=== PATIENT | male | born 1995 | race Caucasian/White ===

== ENCOUNTER 2018-08-06 18:02 | Emergency (ER) | payer MEDICARE, MEDICAID ==
[~2018-08-06] VITALS: Ht 175.3 cm; Wt 65.0 kg
[~2018-08-06 18:02] MED LIST: QUET25TA PO; ZOLP5TAB8 PO
[2018-08-06] MEDS ORDERED: TETanus/Pertussis (Acell)/Diphther VAC/PF (Tdap-Adult) 0.5ml syringe IM ONE (18:10)
[2018-08-06 18:57] VITALS: BP 121/85
== END 2018-08-06 18:59 | disposition home or self-care (01) ==
LOC: ER 18:02
DX: S80.02XA Contusion of left knee, initial encounter (principal); S00.81XA Abrasion of other part of head, initial encounter; S90.512A Abrasion, left ankle, initial encounter; F12.90 Cannabis use, unspecified, uncomplicated; Z59.0 Homelessness; Z56.0 Unemployment, unspecified; Z88.8 Allergy status to other drugs, medicaments and biological substances; W22.8XXA Striking against or struck by other objects, initial encounter; Y93.01 Activity, walking, marching and hiking; Y92.89 Other specified places as the place of occurrence of the external cause; Y99.9 Unspecified external cause status
CPT/HCPCS: 73564; 90471; 90715; 99283

== ENCOUNTER 2018-08-08 20:35 | Emergency (ER) | payer MEDICARE, MEDICAID ==
[~2018-08-08] VITALS: Ht 180.3 cm; Wt 75.0 kg
[2018-08-08] MEDS ORDERED: NO HOME MEDS (21:11)
--- NOTE | 2018-08-08 21:25 | NUR ---
TELE PSYCH CONSULT INITIATED.
--- NOTE | 2018-08-08 21:41 | NUR ---
PT UP TO BR TO PROVIDE URINE SAMPLE, DIPPED CUP INTO TOILET URINE WAS VERY CLEAR AND COLD TO THE TOUCH. ASKED FOR ANOTHER SAMPLE AND PT STATED HE CANNOT URINATE AT THIS TIME. ASKING TO SPEAK TO "SOMEONE IN CHARGE". TOLD PT THAT I WAS HIS NURSE AND IN CHARGE OF TAKING CARE OF HIM. ALSO TOLD IF UNABLE TO PROVIDE URINE THAT HE WOULD BE CATHETERIZED.
[2018-08-08 22:25] LABS: BASOPHILS % (AUTO) 0.1 % (0-1); EOSINOPHILS % (AUTO) 0 % (0-6); HEMATOCRIT 36.4 % (42.0-52.0); HEMOGLOBIN 12.1 g/dl (14.0-17.9); LYMPHOCYTES # (AUTO) 0.9 X10'3 (1.1-4.8); LYMPHOCYTES % (AUTO) 7.9 % (21-51); MEAN CORPUSCULAR HEMOGLOBIN 29.4 PG (27.0-31.0); MEAN CORPUSCULAR HGB CONC 33.3 g/dL (33.0-36.5); MEAN CORPUSCULAR VOLUME 88.4 FL (78-98); MEAN PLATELET VOLUME 8.2 FL (7.4-10.4); MONOCYTES # (AUTO) 0.7 X10'3 (0-0.9); NEUTROPHILS # (AUTO) 10.1 X10'3 (1.8-7.7); PLATELET COUNT 217 X10'3 (140-440); RED BLOOD COUNT 4.12 X10'6 (4.70-6.10); RED CELL DISTRIBUTION WIDTH 12.9 % (11.5-14.5); WHITE BLOOD COUNT 11.7 X10'3 (4.5-11.0)
[2018-08-08 22:30] LABS: ALANINE AMINOTRANSFERASE 27 U/L (12-78); ALBUMIN 3.8 G/DL (3.4-5.0); ALBUMIN/GLOBULIN RATIO 1.2 (1.1-1.5); ALKALINE PHOSPHATASE 57 IU/L (46-116); ANION GAP 8 (8-16); ASPARTATE AMINO TRANSFERASE 47 U/L (10-37); BILIRUBIN,TOTAL 0.5 MG/DL (0.1-1.0); BLOOD UREA NITROGEN 23 MG/DL (7-18); BUN/CREATININE RATIO 30.7 (5.4-32.0); CALCIUM 8.9 MG/DL (8.5-10.1); CHLORIDE 102 MMOL/L (99-107); CREATININE 0.75 MG/DL (0.60-1.10); GLUCOSE 97 MG/DL (70-104); POTASSIUM 4.3 MMOL/L (3.5-5.1); SODIUM 137 MMOL/L (135-145); TOTAL CARBON DIOXIDE 27.4 MMOL/L (24-32); TOTAL PROTEIN 6.9 G/DL (6.4-8.2); eGFR > 90 ML/MIN
[2018-08-08 22:39] LABS: ETHANOL < 0.010 GM/DL (0.0-0.010)
--- NOTE | 2018-08-08 22:50 | NUR ---
PT SPEAKING IN A HIGH VOICE, MUMBLING ABOUT NONSENSE. ENC TO KEEP NOISE DOWN OTHER PATTIENTS ARE SLEEPING.
[2018-08-08] MEDS ORDERED: LORazepam 2 mg/ml vial IM ONE (22:55)
--- NOTE | 2018-08-08 23:00 | NUR ---
DR BAUTISTA ASKED FOR MEDS FOR PT TO HELP HIM SETTLE DOWN, SOMEWHAT AGGITATED AND DISRUPTIVE TO UNIT. ATIVAN 2MG IM GIVEN.
--- NOTE | 2018-08-08 23:06 | NUR ---
TELE PSYCH CONSULT CANCELLED SINCE PT WAS MEDICATED, WILL RE INITIATE IN AM.
--- NOTE | 2018-08-09 00:59 | NUR ---
PT NOW SLEEPING AFTER BEING MEDICATED.
[2018-08-09 06:00] VITALS: BP 115/62
--- NOTE | 2018-08-09 06:30 | NUR ---
pt sleeping on left side no distress noted.
--- NOTE | 2018-08-09 07:15 | NUR ---
PT awake, stated not homicidal or suicidal. wants to leave. stated will comply and give UA. UA sent down to pharmacy. awaiting results.
--- NOTE | 2018-08-09 08:11 | NUR ---
called CB to initiate psyc consult. pt stated not homicidal or suicidal.
[2018-08-09 08:15] LABS: CLARITY,URINE CLEAR (Clear); COLOR,URINE YELLOW (Yellow); GLUCOSE, URINE NEGATIVE (Neg); KETONES,URINE >=80 mg/dl (Neg); LEUKOCYTE ESTERASE ,URINE NEGATIVE (Neg); NITRITES, URINE NEGATIVE (Neg); OCCULT BLOOD,URINE NEGATIVE (Neg); PROTEIN,URINE TRACE mg/dl (Neg)
[2018-08-09 08:20] LABS: UA COLLECTION TYPE CLN CATCH MIDSTREAM
[2018-08-09 08:21] LABS: BACTERIA,URINE NONE SEEN /HPF (Neg); MUCUS STRANDS FEW /LPF (Neg); RBC,URINE NONE SEEN /HPF (0-2); SQUAMOUS EPITHELIAL CELL,UR FEW /LPF (FEW); WBC,URINE NONE SEEN /HPF (0-4)
[2018-08-09 08:22] LABS: URINE AMPHETAMINE SCREEN NEGATIVE (Neg); URINE BARBITUATE SCREEN NEGATIVE (Neg); URINE BENZODIAZEPINES SCREEN NEGATIVE (Neg); URINE CANNABINOID SCREEN POSITIVE (Neg); URINE COCAINE SCREEN NEGATIVE (Neg); URINE METHADONE SCREEN NEGATIVE (Neg); URINE OPIATE SCREEN NEGATIVE (Neg); URINE PHENCYCLIDINE SCREEN NEGATIVE (Neg)
--- NOTE | 2018-08-09 08:47 | NUR ---
mother called stated has effective poa over pt and is legal gardian. stated will let pt know she called.
--- NOTE | 2018-08-09 10:14 | NUR ---
pt walking in front of nursing station. no distress noted. stated he wants to leave.
--- NOTE | 2018-08-09 12:00 | NUR ---
pt sleeping on left side no distress noted.
--- NOTE | 2018-08-09 13:10 | NUR ---
pt called mother to fruit or nut picker for ride.
--- NOTE | 2018-08-09 13:23 | NUR ---
I spoke to pt mother. stated having work done on car right now. will pick pt up in 1.5-2 hours.
== END 2018-08-09 15:40 | disposition home or self-care (01) ==
LOC: ER 20:35
DX: F20.9 Schizophrenia, unspecified (principal); F12.90 Cannabis use, unspecified, uncomplicated; Z56.0 Unemployment, unspecified; Z59.0 Homelessness; Z88.8 Allergy status to other drugs, medicaments and biological substances; S00.81XA Abrasion of other part of head, initial encounter; X58.XXXA Exposure to other specified factors, initial encounter; Y93.89 Activity, other specified; Y92.89 Other specified places as the place of occurrence of the external cause; Y99.8 Other external cause status
CPT/HCPCS: 36415; 80053; 80305; 80320; 81001; 84443; 85025; 96372; 99285; J2060

== ENCOUNTER 2018-08-11 17:42 | Emergency (ER) | payer MEDICARE, MEDICAID ==
[~2018-08-11] VITALS: Ht 180.3 cm; Wt 68.2 kg
[~2018-08-11 17:42] MED LIST changes: +NO HOME MEDS
--- NOTE | 2018-08-11 18:11 | NUR ---
TELEPYCH CONSULT INITIATED.
[2018-08-11 18:13] LABS: BASOPHILS % (AUTO) 0.3 % (0-1); EOSINOPHILS # (AUTO) 0.1 X10'3 (0-0.9); EOSINOPHILS % (AUTO) 0.7 % (0-6); LYMPHOCYTES # (AUTO) 0.9 X10'3 (1.1-4.8); LYMPHOCYTES % (AUTO) 12.7 % (21-51); MEAN CORPUSCULAR HEMOGLOBIN 29.4 PG (27.0-31.0); MEAN CORPUSCULAR HGB CONC 33.3 g/dL (33.0-36.5); MEAN CORPUSCULAR VOLUME 88.3 FL (78-98); MEAN PLATELET VOLUME 7.8 FL (7.4-10.4); MONOCYTES # (AUTO) 0.4 X10'3 (0-0.9); MONOCYTES % (AUTO) 5.8 % (2-12); NEUTROPHILS # (AUTO) 5.7 X10'3 (1.8-7.7); NEUTROPHILS % (AUTO) 80.5 % (42-75); PLATELET COUNT 275 X10'3 (140-440); RED BLOOD COUNT 4.41 X10'6 (4.70-6.10); RED CELL DISTRIBUTION WIDTH 12.8 % (11.5-14.5); WHITE BLOOD COUNT 7.2 X10'3 (4.5-11.0)
[2018-08-11] MEDS ORDERED: LORazepam 1 MG tablet PO ONE (18:20)
[2018-08-11 18:23] LABS: ALANINE AMINOTRANSFERASE 28 U/L (12-78); ALBUMIN 4.2 G/DL (3.4-5.0); ALBUMIN/GLOBULIN RATIO 1.2 (1.1-1.5); ALKALINE PHOSPHATASE 63 IU/L (46-116); ANION GAP 5 (8-16); ASPARTATE AMINO TRANSFERASE 20 U/L (10-37); BILIRUBIN,TOTAL 0.5 MG/DL (0.1-1.0); BLOOD UREA NITROGEN 13 MG/DL (7-18); BUN/CREATININE RATIO 14.8 (5.4-32.0); CALCIUM 9.8 MG/DL (8.5-10.1); CHLORIDE 102 MMOL/L (99-107); CREATININE 0.88 MG/DL (0.60-1.10); GLUCOSE 131 MG/DL (70-104); SODIUM 138 MMOL/L (135-145); TOTAL PROTEIN 7.6 G/DL (6.4-8.2); eGFR > 90 ML/MIN
[2018-08-11 18:33] LABS: ETHANOL < 0.010 GM/DL (0.0-0.010)
--- NOTE | 2018-08-11 19:30 | NUR ---
PT WANDERING IN HALLWAY AND GOING INTO OTHER PTS ROOM. KAVEH BONILLA ASSIGNED.
--- NOTE | 2018-08-11 19:58 | NUR ---
CART #1 IN ROOM AND TURNED ON AND THE PT WAS BRIEFED ON HOW IT WORKS.
--- NOTE | 2018-08-11 21:14 | NUR ---
dr. jacobs called and report has been given.
--- NOTE | 2018-08-11 21:16 | NUR ---
dr. jacobs in process of interviewing pt.
--- NOTE | 2018-08-11 21:25 | NUR ---
MOVED TO ROOM 27, PT REPEAT VISITOR. WAS HERE ON 5150 BY [facility] ON 08/08.
[2018-08-11 21:36] LABS: CLARITY,URINE SLIGHTLY CLOUDY (Clear); COLOR,URINE YELLOW (Yellow); GLUCOSE, URINE NEGATIVE (Neg); KETONES,URINE NEGATIVE (Neg); LEUKOCYTE ESTERASE ,URINE NEGATIVE (Neg); NITRITES, URINE NEGATIVE (Neg); OCCULT BLOOD,URINE NEGATIVE (Neg); PH,URINE 7.5 (4.8-8.0); PROTEIN,URINE NEGATIVE (Neg)
[2018-08-11 21:38] LABS: UA COLLECTION TYPE CLN CATCH MIDSTREAM
[2018-08-11 21:42] LABS: AMORPHOUS PHOSPHATES 2+; SQUAMOUS EPITHELIAL CELL,UR FEW /LPF (FEW)
[2018-08-11 21:43] LABS: BACTERIA,URINE FEW /HPF (Neg); MUCUS STRANDS FEW /LPF (Neg); RBC,URINE 0-2 /HPF (0-2); URINE AMPHETAMINE SCREEN NEGATIVE (Neg); URINE BARBITUATE SCREEN NEGATIVE (Neg); URINE BENZODIAZEPINES SCREEN NEGATIVE (Neg); URINE CANNABINOID SCREEN POSITIVE (Neg); URINE COCAINE SCREEN NEGATIVE (Neg); URINE METHADONE SCREEN NEGATIVE (Neg); URINE OPIATE SCREEN NEGATIVE (Neg); URINE PHENCYCLIDINE SCREEN NEGATIVE (Neg); WBC,URINE 0-4 /HPF (0-4)
--- NOTE | 2018-08-11 21:50 | NUR ---
TELE PSYCH REPORT SHOWN TO GEORGINA ASHTON, MEDS ORDERED RECOMMENDED.
[2018-08-11] MEDS ORDERED: ziprasidone IM 20mg inj **IM only IM PRN (21:55)
[2018-08-11] MEDS ORDERED: LORazepam 2 mg/ml vial IM PRN (21:55)
--- NOTE | 2018-08-12 02:22 | NUR ---
AWAKENS OCCASIONALLY AND RE DIRECTED TO BED.
--- NOTE | 2018-08-12 05:48 | NUR ---
AWAKE, RESTLESS, DIRECTED BACK TO BED.
[2018-08-12] MEDS: LORazepam 1 MG tablet PO PRN ×2 (06:43→20:22)
--- NOTE | 2018-08-12 06:45 | NUR ---
Pt getting increasingly agitated. Ativan given.
--- NOTE | 2018-08-12 08:00 | NUR ---
Geodon given for increasing agitation.
--- NOTE | 2018-08-12 09:30 | NUR ---
Pt is now sleeping.
--- NOTE | 2018-08-12 10:12 | NUR ---
Pt still sleeping.
--- NOTE | 2018-08-12 15:23 | NUR ---
Pt wandering around unit, not following directions, becoming more and more restless. Ativan IM given.
--- NOTE | 2018-08-12 16:53 | NUR ---
Sitting up in bed speaking with [facility] worker
--- NOTE | 2018-08-12 19:47 | NUR ---
The patient has been sleeping on his bed. He was awakened for the evening meal but was drowsy and disorganized. He walked around in front of the nursing station and was helped back to his bed.
--- NOTE | 2018-08-12 20:17 | NUR ---
Patient has a large emesis and provider made aware and orders received.
[2018-08-12] MEDS ORDERED: ondansetron 4mg rapidly disintigrating tab PO ONE (20:20)
--- NOTE | 2018-08-12 21:20 | NUR ---
The patient appears to be asleep at this time
--- NOTE | 2018-08-12 22:11 | NUR ---
report to [facility]
--- NOTE | 2018-08-12 22:26 | NUR ---
Per [facility] has accepted the patient and will be transported tonight. The accepting MD is Dr. Alfred. Nurse to nurse has been done with Sapna
[2018-08-12 23:31] VITALS: BP 120/74
== END 2018-08-12 23:47 ==
LOC: ER 17:42
DX: F31.9 Bipolar disorder, unspecified (principal); F20.9 Schizophrenia, unspecified; F17.200 Nicotine dependence, unspecified, uncomplicated; F12.90 Cannabis use, unspecified, uncomplicated; Z56.0 Unemployment, unspecified; Z59.0 Homelessness; Z88.8 Allergy status to other drugs, medicaments and biological substances
CPT/HCPCS: 36415; 80053; 80305; 80320; 81001; 84443; 85025; 96372; 99285; J2060; J3486

== ENCOUNTER → 2018-09-12 | Emergency (ER) | payer MEDICARE, MEDICAID ==
[~2018-09-12] VITALS: Ht 180.3 cm; Wt 68.2 kg
[~2018-09-12] MED LIST changes: +OLAN10TA19 PO; +OLAN20TA16 PO; -QUET25TA PO; +QUET300T19 PO; -ZOLP5TAB8 PO
[2018-09-12 15:49] VITALS: BP 124/66
--- NOTE | 2018-09-12 15:58 | NUR ---
Patient sent out to lobby with father and 2 brothers.
[2018-09-12 18:38] LABS: BASOPHILS # (AUTO) 0.1 X10'3 (0-0.2); BASOPHILS % (AUTO) 0.6 % (0-1); EOSINOPHILS # (AUTO) 0.2 X10'3 (0-0.9); EOSINOPHILS % (AUTO) 2.3 % (0-6); HEMATOCRIT 40.3 % (42.0-52.0); HEMOGLOBIN 13.5 g/dl (14.0-17.9); LYMPHOCYTES # (AUTO) 2.1 X10'3 (1.1-4.8); LYMPHOCYTES % (AUTO) 23.6 % (21-51); MEAN CORPUSCULAR HGB CONC 33.5 g/dL (33.0-36.5); MEAN CORPUSCULAR VOLUME 89.7 FL (78-98); MEAN PLATELET VOLUME 7.4 FL (7.4-10.4); MONOCYTES # (AUTO) 0.5 X10'3 (0-0.9); MONOCYTES % (AUTO) 6.2 % (2-12); NEUTROPHILS # (AUTO) 5.9 X10'3 (1.8-7.7); NEUTROPHILS % (AUTO) 67.3 % (42-75); PLATELET COUNT 287 X10'3 (140-440); RED BLOOD COUNT 4.49 X10'6 (4.70-6.10); WHITE BLOOD COUNT 8.8 X10'3 (4.5-11.0)
[2018-09-12 18:39] LABS: CLARITY,URINE CLEAR (Clear); COLOR,URINE YELLOW (Yellow); GLUCOSE, URINE NEGATIVE (Neg); KETONES,URINE NEGATIVE (Neg); LEUKOCYTE ESTERASE ,URINE NEGATIVE (Neg); NITRITES, URINE NEGATIVE (Neg); OCCULT BLOOD,URINE NEGATIVE (Neg); PROTEIN,URINE NEGATIVE (Neg); UROBILINOGEN,URINE 0.2 E.U/dL (0.2-1.0)
[2018-09-12 18:46] LABS: UA COLLECTION TYPE CLN CATCH MIDSTREAM
[2018-09-12 18:54] LABS: URINE AMPHETAMINE SCREEN NEGATIVE (Neg); URINE BARBITUATE SCREEN NEGATIVE (Neg); URINE BENZODIAZEPINES SCREEN NEGATIVE (Neg); URINE CANNABINOID SCREEN NEGATIVE (Neg); URINE COCAINE SCREEN NEGATIVE (Neg); URINE METHADONE SCREEN NEGATIVE (Neg); URINE OPIATE SCREEN NEGATIVE (Neg); URINE PHENCYCLIDINE SCREEN NEGATIVE (Neg)
[2018-09-12 19:02] LABS: ALANINE AMINOTRANSFERASE 19 U/L (12-78); ALBUMIN 3.9 G/DL (3.4-5.0); ALKALINE PHOSPHATASE 82 IU/L (46-116); ANION GAP 6 (8-16); ASPARTATE AMINO TRANSFERASE 11 U/L (10-37); BILIRUBIN,TOTAL 0.2 MG/DL (0.1-1.0); BLOOD UREA NITROGEN 12 MG/DL (7-18); BUN/CREATININE RATIO 14.5 (5.4-32.0); CALCIUM 9.3 MG/DL (8.5-10.1); CHLORIDE 103 MMOL/L (99-107); CREATININE 0.83 MG/DL (0.60-1.10); GLUCOSE 100 MG/DL (70-104); POTASSIUM 3.8 MMOL/L (3.5-5.1); SODIUM 138 MMOL/L (135-145); TOTAL CARBON DIOXIDE 29.5 MMOL/L (24-32); TOTAL PROTEIN 7.9 G/DL (6.4-8.2); eGFR > 90 ML/MIN
== END | disposition home or self-care (01) ==
LOC: ER 15:42
DX: F20.9 Schizophrenia, unspecified (principal); F31.9 Bipolar disorder, unspecified; Z88.8 Allergy status to other drugs, medicaments and biological substances; Z79.899 Other long term (current) drug therapy
CPT/HCPCS: 36415; 80053; 80305; 81003; 85025; 99283; 99284

== ENCOUNTER 2018-12-22 11:54 | Emergency (ER) | payer MEDICARE, MEDICAID ==
[~2018-12-22] VITALS: Ht 180.3 cm; Wt 61.4 kg
[~2018-12-22 11:54] MED LIST changes: -NO HOME MEDS; -OLAN20TA16 PO; +OLAN20TA34 PO
[2018-12-22 13:10] LABS: BASOPHILS % (AUTO) 0.3 % (0-1); EOSINOPHILS # (AUTO) 0.1 X10'3 (0-0.9); EOSINOPHILS % (AUTO) 1.5 % (0-6); HEMATOCRIT 42.5 % (42.0-52.0); HEMOGLOBIN 14.5 g/dl (14.0-17.9); LYMPHOCYTES # (AUTO) 1.3 X10'3 (1.1-4.8); LYMPHOCYTES % (AUTO) 13.7 % (21-51); MEAN CORPUSCULAR HEMOGLOBIN 29.9 PG (27.0-31.0); MEAN CORPUSCULAR VOLUME 87.7 FL (78-98); MEAN PLATELET VOLUME 7.5 FL (7.4-10.4); MONOCYTES # (AUTO) 0.5 X10'3 (0-0.9); MONOCYTES % (AUTO) 5.6 % (2-12); NEUTROPHILS # (AUTO) 7.6 X10'3 (1.8-7.7); NEUTROPHILS % (AUTO) 78.9 % (42-75); PLATELET COUNT 228 X10'3 (140-440); RED BLOOD COUNT 4.84 X10'6 (4.70-6.10); RED CELL DISTRIBUTION WIDTH 13.4 % (11.5-14.5); WHITE BLOOD COUNT 9.6 X10'3 (4.5-11.0)
--- NOTE | 2018-12-22 13:10 | NUR ---
ASSUMED CARE OF PT
--- NOTE | 2018-12-22 13:15 | NUR ---
pt is resting quietly on gurney, smiling, calm and cooperative
[2018-12-22 13:23] LABS: ALANINE AMINOTRANSFERASE 21 U/L (12-78); ALBUMIN 4.1 G/DL (3.4-5.0); ALKALINE PHOSPHATASE 63 IU/L (46-116); ANION GAP 9 (8-16); ASPARTATE AMINO TRANSFERASE 16 U/L (10-37); BILIRUBIN,TOTAL 0.3 MG/DL (0.1-1.0); BLOOD UREA NITROGEN 11 MG/DL (7-18); BUN/CREATININE RATIO 12.2 (5.4-32.0); CALCIUM 9.2 MG/DL (8.5-10.1); CHLORIDE 103 MMOL/L (99-107); ETHANOL < 0.010 GM/DL (0.0-0.010); GLUCOSE 95 MG/DL (70-104); POTASSIUM 4.1 MMOL/L (3.5-5.1); SODIUM 141 MMOL/L (135-145); TOTAL CARBON DIOXIDE 28.7 MMOL/L (24-32); TOTAL PROTEIN 8.4 G/DL (6.4-8.2); eGFR > 90 ML/MIN
--- NOTE | 2018-12-22 14:47 | NUR ---
pt is walking around room, calm and cooperative, gave pt yogurt, greta crackers and pitcher of water, kristi well, no n/v, urine sample sent to lab, pt has been using urinal
[2018-12-22 15:02] LABS: URINE AMPHETAMINE SCREEN NEGATIVE (Neg); URINE BARBITUATE SCREEN NEGATIVE (Neg); URINE BENZODIAZEPINES SCREEN NEGATIVE (Neg); URINE CANNABINOID SCREEN NEGATIVE (Neg); URINE COCAINE SCREEN NEGATIVE (Neg); URINE METHADONE SCREEN NEGATIVE (Neg); URINE OPIATE SCREEN NEGATIVE (Neg); URINE PHENCYCLIDINE SCREEN NEGATIVE (Neg)
--- NOTE | 2018-12-22 15:36 | NUR ---
PT IS LYING QUIETLY ON GURNEY, LIGHTS OFF
--- NOTE | 2018-12-22 15:42 | NUR ---
PER DR LAURA PT CAN HAVE HIS ZYPREXA DOSE NOW IF NEEDED. PT HAS BEEN COMING TO THE DOOR AND HAS HAD TO BE REDIRECTED BACK INTO HIS ROOM. PT IS NOW ON HIS GURNEY RESTING WITH BLANKET COVERING HIM.
--- NOTE | 2018-12-22 15:46 | NUR ---
PT MOVED TO OVERFLOW
[2018-12-22] MEDS ORDERED: DIVA-76 PO (15:54)
--- NOTE | 2018-12-22 16:00 | NUR ---
Received to room 20. Report from Barbi.
[2018-12-22] MEDS ORDERED: OLANZapine 5mg rapidly disint. tablet PO ONE (16:05)
[2018-12-22] MEDS ORDERED: OLANZapine 2.5MG tablet PO SCH (16:05)
--- NOTE | 2018-12-22 16:10 | NUR ---
Pt talking non stop. Will not follow commands. Medicated with zyprexa.
[2018-12-22] MEDS ORDERED: LORazepam 1 MG tablet PO ONE (17:10)
--- NOTE | 2018-12-22 17:10 | NUR ---
Pt up walking around unit, now practicing karate and making inappropriate comments. Medicated with ativan.
--- NOTE | 2018-12-22 18:45 | NUR ---
Patient ate his dinner and immediately returned to sleep.
[2018-12-22] MEDS ORDERED: olanzapine 10mg tablet PO SCH (21:00)
[2018-12-22] MEDS ORDERED: quetiapine 100mg tablet PO SCH (21:00)
--- NOTE | 2018-12-22 22:30 | NUR ---
Patient awoke, would not discuss condition. Ambulated to bathroom and back to bed. Compliant with Rx meds. Back to sleep. Patients bed is in view from nursing station. Q15 minute rounding for patient safety.
--- NOTE | 2018-12-23 06:07 | NUR ---
This patient gets out of bed and ambulates. His speech is becoming more clear. He states he is tired and returns to bed.
[2018-12-23 06:12] VITALS: BP 128/71
--- NOTE | 2018-12-23 06:14 | NUR ---
pt refused taking temperature during morning vitals
--- NOTE | 2018-12-23 07:00 | NUR ---
Received pt awake, pacing in front of nurse's station, talking to self and making bizarre moves.
[2018-12-23] MEDS ORDERED: olanzapine 10mg tablet PO SCH (08:00)
--- NOTE | 2018-12-23 09:00 | NUR ---
Pt continues to pace around the unit. Needing redirection at times. Pt cooperative with redirection. Pt was calling another pt names. He apolegized when confronted.
--- NOTE | 2018-12-23 11:00 | NUR ---
Pt napped for awhile, then was up pacing again, talking and laughing to self. Remained redirectable.
[2018-12-23] MEDS ORDERED: LORazepam 1 MG tablet PO PRN (12:45)
--- NOTE | 2018-12-23 13:00 | NUR ---
Pt continues to be antsy and requires frequent redirection and was asked to stay on his bed for 10 minutes in a "time out" which he complied with and then apolegized.
--- NOTE | 2018-12-23 15:00 | NUR ---
Pt resting quietly in bed awaiting admission to [facility].
[2018-12-23] MEDS ORDERED: PALI234D IM (16:55)
== END 2018-12-23 16:05 | disposition home or self-care (01) ==
LOC: ER 11:54
DX: F29 Unspecified psychosis not due to a substance or known physiological condition (principal); F31.9 Bipolar disorder, unspecified; F20.9 Schizophrenia, unspecified; F12.90 Cannabis use, unspecified, uncomplicated; Z59.0 Homelessness; Z56.0 Unemployment, unspecified; Z91.048 Other nonmedicinal substance allergy status; Z79.899 Other long term (current) drug therapy
CPT/HCPCS: 36415; 80053; 80305; 80320; 84443; 85025; 99285

== ENCOUNTER 2018-12-23 12:31 | Inpatient (IN) | payer MEDICARE, MEDICAID ==
[~2018-12-23] VITALS: Ht 175.3 cm; Wt 72.2 kg
[2018-12-23 11:00] VITALS: BP 135/78
[~2018-12-23 12:31] MED LIST changes: +DIVA-76 PO; -OLAN10TA19 PO; -QUET300T19 PO
--- NOTE | 2018-12-23 16:00 | NUR ---
Admit Note Dx: Psychosis NOS Legal Status: Involuntary 5150 DTS/DTO, GD 23 year old male was brought in by his mental health group after he was reported to be making statements about "shooting people" with his 44 magnum that he believes he "open carries". The patient stated he does not currently plan on shooting anyone unless he has to which he states "won't happen". He stated that he was going to "shoot the bad guys" and states that the bad guys are "the ones who are going to get in the way of justice". He stated that he was "Wandisimo" from the [place] show and that he has "been misbehaving". He reports that he lives in [place] with his mental health group and has a history of Asperger's, Autism, and is currently taking Depakote. He denies hearing any voices in his head. He states that he smokes "a little bit". He denies any suicidal ideation. Nasal Swab completed. Pt is a "vegetarian."
[2018-12-23] MEDS ORDERED: acetaminophen 325mg tablet PO PRN ×2 (16:30)
[2018-12-23] MEDS ORDERED: tuberculin, purif. prot. deriv. 5 units/0.1ml ID ONE (16:30)
[2018-12-23] MEDS ORDERED: mag hydrox/Alum hydrox/simeth 30ml oral suspension PO PRN (16:30)
[2018-12-23] MEDS ORDERED: loperamide 2mg capsule PO PRN (16:30)
[2018-12-23] MEDS ORDERED: magnesium hydroxide 30ml (MOM) UD suspension PO PRN (16:30)
[2018-12-23 16:35] VITALS: BP 115/75
[2018-12-23] MEDS ORDERED: PALI234D IM (16:55)
[2018-12-23] MEDS ORDERED: paliperidone palmitate inj 234 MG/1.5 ML SYRINGE IM SCH (18:45)
[2018-12-23 19:42] VITALS: BP 108/72
[2018-12-23] MEDS: hydrOXYzine 25 MG tablet PO PRN (20:45)
[2018-12-23] MEDS: divalproex sodium 500mg tablet.DR PO SCH (20:45)
[2018-12-23] MEDS: olanzapine 10mg tablet PO SCH (20:45)
[2018-12-23] MEDS: LORazepam 1 MG tablet PO PRN (23:42)
--- NOTE | 2018-12-24 00:33 | NUR ---
Nursing Progress Note Legal hold:5150 Client on involuntary status for GD/DTS/DTO Report received from Blossom BRAN with use of SBAR[]. Why are they here: 23 year old male was brought in by his mental health group after he was reported to be making statements about "shooting people" with his 44 magnum that he believes he "open carries". The patient stated he does not currently plan on shooting anyone unless he has to which he states "won't happen". He stated that he was going to "shoot the bad guys" and states that the bad guys are "the ones who are going to get in the way of justice". He stated that he was "Wandisimo" from the [place] [employer] show and that he has "been misbehaving". He reports that he lives in [place] with his mental health group and has a history of Asperger's, Autism, and is currently taking Depakote. He denies hearing any voices in his head. He states that he smokes "a little bit". He denies any suicidal ideation. Assessment What has happened this shift: Pt was in the hallway at change of shift. 1:1 assessment completed at bedside. Pt denies a/vh, denies s/i, denies h/i, Pt states "I need help to stop doing stuff to hurt myself. I did stuff because I thought I needed to do it to help people" Pt then states "I need a gun, I need a badge and a gun. I'm just kidding, it's a joke." Pt laughs and says hes joking a lot. He said he wants to get a job being a guard somewhere because he wants to help people. Pt states he needs a place to live "because being on the street people try to give me drugs and rape me." Pt states he has trouble falling asleep and woke up several times during the night. Pt is pleasant and cooperative, directable. Appetite is good. S/I, H/I: Denies A/VH: Denies Sleep: interrupted ADL's: independent Group attendance: no evening groups Were meds taken: yes Any med S/E non reported/observed Mental Status Exam Appearance: adequately groomed and dressed Eye contact: good Behavior: pt napped during the evening, cooperative Speech: normal rate and rhythm Mood: euthymic Affect: wnl Thought process: linear, grandiose, Thought Content: pt is talking about finding housing, getting help finding a job Cognition: impaired Insight: fair Judgment: poor Interventions PRN's used: ativan, atarax Therapeutic interventions: 1:1 assessment, medication administration, medication education, 15 min checks for safety Restraints/seclusion/emergency medication: none Justification of Continued Inpatient Treatment: to interrupt current crisis, and prevent further decompensation.
[2018-12-24] MEDS: divalproex sodium 500mg tablet.DR PO SCH ×2 (07:26→19:08)
[2018-12-24 07:48] VITALS: BP 116/76
[2018-12-24 08:28] LABS: CHOL/HDL RATIO 3.2 (0.00-4.99); CHOLESTEROL 159 MG/DL (0-200); HDL CHOLESTEROL 50 MG/DL (35-60); LDL CHOLESTEROL 91 MG/DL (50-100); TRIGLYCERIDES 75 MG/DL (20-135)
[2018-12-24 08:32] LABS: HEMOGLOBIN A1C 5.3 % (4.5-6.2)
--- NOTE | 2018-12-24 17:40 | NUR ---
DISCHARGE PLANNING: SW met w/ pt in hallway of unit. Pt made jokes to SW. SW requested verbal permission to contact [facility] for pt housing needs. Pt provided verbal SCOTT and agreed to sign paper SCOTT during psychosocial assessment scheduled time. Dinorah Garibay, Radiotelegraphist STAVE INSPECTOR [id number] Supervised by Jose Dawkins, [id number]
--- NOTE | 2018-12-24 17:52 | NUR ---
Nursing Progress Note Legal hold:5150 Client on involuntary status for GD/DTS/DTO Report received from Rebeca BRAN with use of SBAR. Why are they here: 23 year old male was brought in by his mental health group after he was reported to be making statements about "shooting people" with his 44 magnum that he believes he "open carries". The patient stated he does not currently plan on shooting anyone unless he has to which he states "won't happen". He stated that he was going to "shoot the bad guys" and states that the bad guys are "the ones who are going to get in the way of justice". He stated that he was "[place]andis[place]" from the [place] [employer] show and that he has "been misbehaving". He reports that he lives in [place] with his mental health group and has a history of Asperger's, Autism, and is currently taking Depakote. He denies hearing any voices in his head. He states that he smokes "a little bit". He denies any suicidal ideation. Assessment What has happened this shift: Received Pt walking in hallway in no distress at change of shift. 1:1 assessment completed at bedside. Pt denies a/vh, denies s/i, denies h/i, Pt states Pt enjoys saying poly wants a cracker, or poly wants whatever and laughs. He laughs a lot and makes funny cartoon references. He is childlike and redirectable, pleasant and cooperative. He attends meals and walks the halls making dancing and workout movements. Appetite is good. S/I, H/I: Denies A/VH: Denies Sleep: interrupted ADL's: independent Group attendance: no Were meds taken: yes Any med S/E non reported/observed Mental Status Exam Appearance: adequately groomed and dressed Eye contact: good Behavior: pt napped during the evening, cooperative Speech: normal rate and rhythm Mood: euthymic Affect: wnl Thought process: linear, grandiose, Thought Content: pt is talking about finding housing, getting help finding a job Cognition: impaired Insight: fair Judgment: poor Interventions PRN's used: ativan, atarax Therapeutic interventions: 1:1 assessment, medication administration, medication education, 15 min checks for safety Restraints/seclusion/emergency medication: none Justification of Continued Inpatient Treatment: to interrupt current crisis, and prevent further decompensation.
[2018-12-24] MEDS: LORazepam 1 MG tablet PO PRN (19:08)
[2018-12-24 19:49] VITALS: BP 124/62
[2018-12-24] MEDS: olanzapine 10mg tablet PO SCH (20:28)
[2018-12-24] MEDS ORDERED: mirtazapine 15mg tablet PO PRN (22:00)
--- NOTE | 2018-12-24 22:43 | NUR ---
Nursing Progress Note Legal hold: 5150 Client on involuntary status for GD Report received from SHANT Denny with use of SBAR. Why are they here: 23 year old male was brought in by his mental health group after he was reported to be making statements about "shooting people" with his 44 magnum that he believes he "open carries". The patient stated he does not currently plan on shooting anyone unless he has to which he states "won't happen". He stated that he was going to "shoot the bad guys" and states that the bad guys are "the ones who are going to get in the way of justice". He stated that he was "Wandisimo" from the [place] [employer] show and that he has "been misbehaving". He reports that he lives in [place] with his mental health group and has a history of Asperger's, Autism, and is currently taking Depakote. He denies hearing any voices in his head. He states that he smokes "a little bit". He denies any suicidal ideation. Assessment What has happened this shift: Patient is walking the halls at change of shift talking and laughing to himself. he needs many reminders to not run in the hallway. He is cooperative for a 1:1 assessment at his bedside. He denies SI/HI and AH/VH. He presents as disorganized saying random statements like "[place] for president." then laughs. He is compliant with his HS medications and takes them without event. S/I, H/I: Denies A/VH: Denies Sleep: See sleep assessment ADL's: Independent Group attendance: No groups this shift Were meds taken: Yes Any med S/E None reported/observed Mental Status Exam Appearance: Adequately groomed, wearing green scrubs Eye contact: Good Behavior: Walks the halls and laughs to himself Speech: Rapid, sometimes difficult to understand Mood: Happy (laughing in the halls), but appears restless pacing, getting up and down from bed repeatedly. Affect: Congruent to mood Thought process: Linear, grandiose Thought Content: Say's random statements, but then can carry on conversation at times. Cognition: Impaired Insight: Fair Judgment: Poor Interventions PRN's used: Ativan Therapeutic interventions: 1:1 assessment, medication administration, medication education, 15 min checks for safety. Restraints/seclusion/emergency medication: none Justification of Continued Inpatient Treatment: Interrupt current crisis, and prevent further decompensation.
[2018-12-25] MEDS: hydrOXYzine 25 MG tablet PO PRN (00:37)
[2018-12-25 08:20] VITALS: BP 118/71
[2018-12-25] MEDS ORDERED: divalproex sodium 250mg tablet PO ONE (08:20)
--- NOTE | 2018-12-25 08:47 | NUR ---
COLLATERAL/DISCHARGE PLANNING: SW contacted [facility] Dayami Williamson, who reports pt has been in process of placement search for retirement. Per Dayami, pt is assigned to Eduin Chen, who will continue placement search and request interview for pt with [facility]. Dinorah Garibay, Drilling Field Operator RIG MANAGER [id number] Supervised by Jose Dawkins, [id number]
--- NOTE | 2018-12-25 17:28 | NUR ---
Nursing Progress Note Legal hold:5150 Client on involuntary status for GD/DTS/DTO Report received from Rebeca BRAN with use of SBAR. Why are they here: 23 year old male was brought in by his mental health group after he was reported to be making statements about "shooting people" with his 44 magnum that he believes he "open carries". The patient stated he does not currently plan on shooting anyone unless he has to which he states "won't happen". He stated that he was going to "shoot the bad guys" and states that the bad guys are "the ones who are going to get in the way of justice". He stated that he was "Wandisimo" from the [place] show and that he has "been misbehaving". He reports that he lives in [place] with his mental health group and has a history of Asperger's, Autism, and is currently taking Depakote. He denies hearing any voices in his head. He states that he smokes "a little bit". He denies any suicidal ideation. Assessment What has happened this shift: Patient up in visible the entire day; pacing the unit while talking loudly and laughing loudly to himself. Patient denies internal stimuli, and just seems to make him self laugh by making [place] statements. Patient did need redirection at times were interested behavior including following female staff up and down the hallway calling her hot mama. Patient did take a shower today and does respond well to redirection, but needs plenty of it. S/I, H/I: Denies A/VH: Denies Sleep: interrupted ADL's: independent Group attendance: no Were meds taken: yes Any med S/E non reported/observed Mental Status Exam Appearance: adequately groomed and dressed Eye contact: good Behavior: pt napped during the evening, cooperative Speech: normal rate and rhythm Mood: euthymic Affect: wnl Thought process: linear, grandiose, Thought Content: pt is talking about finding housing, getting help finding a job Cognition: impaired Insight: fair Judgment: poor Interventions PRN's used: ativan, atarax Therapeutic interventions: 1:1 assessment, medication administration, medication education, 15 min checks for safety Restraints/seclusion/emergency medication: none Justification of Continued Inpatient Treatment: to interrupt current crisis, and prevent further decompensation.
--- NOTE | 2018-12-25 17:42 | NUR ---
[facility]: [place]. Physiotherapy Practice Manager, Cortez came to see the patient. [phone] Cortez stated that he thinks he may have a place for him and requests SW to followup with updates on pt progress.
[2018-12-25 19:37] VITALS: BP 137/75
[2018-12-25] MEDS ORDERED: divalproex sodium 500mg tablet.DR PO SCH (20:00)
[2018-12-25] MEDS: divalproex sod 250mg ER (24-hour) tablet PO SCH (20:15)
[2018-12-25] MEDS: olanzapine 10mg tablet PO SCH (20:15)
[2018-12-25] MEDS: LORazepam 1 MG tablet PO PRN (20:16)
[2018-12-25] MEDS: mirtazapine 15mg tablet PO SCH (20:16)
--- NOTE | 2018-12-25 22:54 | NUR ---
Nursing Progress Note Legal hold: 5150 Client on involuntary status for GD Report received from SHANT Russo with use of SBAR. Why are they here: 23 year old male was brought in by his mental health group after he was reported to be making statements about "shooting people" with his 44 magnum that he believes he "open carries". The patient stated he does not currently plan on shooting anyone unless he has to which he states "won't happen". He stated that he was going to "shoot the bad guys" and states that the bad guys are "the ones who are going to get in the way of justice". He stated that he was "[place]andisimo" from the [place] show and that he has "been misbehaving". He reports that he lives in [place] with his mental health group and has a history of Asperger's, Autism, and is currently taking Depakote. He denies hearing any voices in his head. He states that he smokes "a little bit". He denies any suicidal ideation. Assessment What has happened this shift: Patient is walking the halls at change of shift running and throwing stuff with another patient. He is easily re-directed. He spends his evening walking the halls laughing loudly and just talking out loud. He likes to make references to movies and or cartoons he has seen. He is re-directed easily when inappropriate statements or actions are made. Patient is compliant with HS medications and goes to bed shortly after eating a evening snack. S/I, H/I: Denies A/VH: Denies Sleep: See sleep assessment ADL's: Independent Group attendance: No groups this shift Were meds taken: Yes Any med S/E None reported/observed Mental Status Exam Appearance: Adequately groomed, wearing green scrubs Eye contact: Good Behavior: Walks the halls and laughs to himself Speech: Rapid, sometimes difficult to understand Mood: Happy (laughing in the halls), getting up and down from bed repeatedly. Affect: Congruent to mood Thought process: Linear, grandiose Thought Content: Say's random statements referring to cartoons or movies. Cognition: Impaired Insight: Fair Judgment: Poor Interventions PRN's used: Ativan Therapeutic interventions: 1:1 assessment, medication administration, medication education, 15 min checks for safety. Restraints/seclusion/emergency medication: None Justification of Continued Inpatient Treatment: Interrupt current crisis, and prevent further decompensation.
[2018-12-26] MEDS: divalproex sod 250mg ER (24-hour) tablet PO SCH ×2 (08:02→20:31)
[2018-12-26 08:18] VITALS: BP 118/71
[2018-12-26] MEDS: hydrOXYzine 25 MG tablet PO PRN ×2 (08:41→20:31)
--- NOTE | 2018-12-26 10:36 | NUR ---
[facility] [employer] CONTACT: SARKIS made TC to [employer]. Nursery Manager, Cortez at [phone] for discharge planning and coordination. SARKIS left message requesting a return contact. SARKIS made TC to Eduin Chen at [facility] at , to discuss placement for pt. SARKIS left message requesting a return contact. Dinorah Garibay, Hospice Patient Care Secretary AGENCY RECRUITER [id number] Supervised by Jose Dawkins, [id number]
--- NOTE | 2018-12-26 12:29 | NUR ---
[facility] CONTACT: SARKIS communicated with Biomedical Electronics Technician, Eduin Chen x2 ([phone]) regarding pt placement at [facility]. SARKIS informed that pt is tentatively accepted to [facility], however a bed will not be available until Saturday12/29/2018. Eduin Chen will coordinate the transportation and admittance to [facility]. Dinorah Garibay, Process Consultant SOFTWARE PROJECT MANAGER [id number] Supervised by Jose Dawkins, [id number]
--- NOTE | 2018-12-26 16:43 | NUR ---
Nursing Progress Note Legal hold: 5250 Client on involuntary status for GD Report received from WINNIE Crouch with use of SBAR. Why are they here: 23 year old male was brought in by his mental health group after he was reported to be making statements about "shooting people" with his 44 magnum that he believes he "open carries". The patient stated he does not currently plan on shooting anyone unless he has to which he states "won't happen". He stated that he was going to "shoot the bad guys" and states that the bad guys are "the ones who are going to get in the way of justice". He stated that he was "Wandisimo" from the [employer] Odd [employer] show and that he has "been misbehaving". He reports that he lives in [place] with his mental health group and has a history of Asperger's, Autism, and is currently taking Depakote. He denies hearing any voices in his head. He states that he smokes "a little bit". He denies any suicidal ideation. Assessment What has happened this shift: Pt denied depression and SI ,admitted to anxiety but then only rated it as a 1/10 though appeared restless and anxious. Pt paces in the [place] talking and laughing to himself, repeats certain phrases like, "Brooke want a cracker" or "Mr Gomez, oh yea, Mr Gomez, oh yeah" then laughs hysterically to himself. Pt asked this nurse, "Do you know who the Green Middleton is? He's renegade Eddy." [place] pt verbalize to himself, "I'm melting...wicked witch, the wild witch of the sumpter." Medicated pt with prn Atarax 50 mg at 0841 with good effect. Pt can get loud and a little hyper at times though is pleasant, cheerful, and easily redirectable. S/I, H/I: Pt denies A/VH: Pt denies Sleep: Slept 6 hours per noc shift report ADL's: Independent, showered today Group attendance: yes Were meds taken: Yes Any med S/E None reported or observed Mental Status Exam Appearance: Clean, has facial acne Eye contact: Good Behavior: Paces the halls with blanket wrapped around him, repeats phrases/rhymes and laughs to himself Speech: somewhat pressured, unclear at times Mood: Happy though somewhat anxious Affect: Happy, laughing, restless, anxious Thought process: flight of ideas, somewhat disorganized Thought Content: perseverates on cartoon, comic book and movie characters, makes statements to himself which he finds funny Cognition: A/O X 2 Insight: poor Judgment: Poor Interventions PRN's used: Atarax 50 mg Therapeutic interventions: 1:1 assessment, therapeutic conversation, medication administration/education/monitoring, limit setting, redirection, Q 15 min checks for safety. Restraints/seclusion/emergency medication: None Justification of Continued Inpatient Treatment: Pt needs stabilization with medication adjustment and monitoring to prevent readmission, also needs placement.
[2018-12-26 19:00] VITALS: BP 132/79
[2018-12-26] MEDS: mirtazapine 15mg tablet PO SCH (20:31)
[2018-12-26] MEDS: olanzapine 10mg tablet PO SCH (20:31)
--- NOTE | 2018-12-27 01:07 | NUR ---
Nursing Progress Note Legal hold: 5150 Client on involuntary status for GD Report received from SHANT Russo with use of SBAR. Why are they here: 23 year old male was brought in by his mental health group after he was reported to be making statements about "shooting people" with his 44 magnum that he believes he "open carries". The patient stated he does not currently plan on shooting anyone unless he has to which he states "won't happen". He stated that he was going to "shoot the bad guys" and states that the bad guys are "the ones who are going to get in the way of justice". He stated that he was "Wandisimo" from the [employer] show and that he has "been misbehaving". He reports that he lives in [place] with his mental health group and has a history of Asperger's, Autism, and is currently taking Depakote. He denies hearing any voices in his head. He states that he smokes "a little bit". He denies any suicidal ideation. Assessment What has happened this shift: Patient is walking the halls at change of shift he seems a bit more calm this evening, no running is noted, and patient seemed to pace the halls a bit less. HE did seem to get a little restless in the evening, wandering the halls seeking input on when to go to bed. Patient still talked to himself and laughed throughout the shift making random statements. Like "Does anybody want to join my [employer]." or "Brooke want a cracker." He was complaint with HS medications and after telling everyone kalyan he went to bed. S/I, H/I: Denies A/VH: Denies Sleep: See sleep assessment ADL's: Independent Group attendance: No groups this shift Were meds taken: Yes Any med S/E None reported/observed Mental Status Exam Appearance: Adequately groomed, wearing green scrubs Eye contact: Good Behavior: Walks the halls and laughs to himself Speech: Rapid, sometimes difficult to understand Mood: Happy (laughing in the halls), getting up and down from bed repeatedly. Affect: Congruent to mood Thought process: Grandiose, random unrelated statements Thought Content: Difficult to assess, patient makes random statements that don't particularly relate to anything. Cognition: Impaired Insight: Fair Judgment: Poor Interventions PRN's used: Atarax Therapeutic interventions: 1:1 assessment, medication administration, medication education, 15 min checks for safety. Restraints/seclusion/emergency medication: None Justification of Continued Inpatient Treatment: Interrupt current crisis, and prevent further decompensation.
[2018-12-27] MEDS: divalproex sod 250mg ER (24-hour) tablet PO SCH ×2 (07:52→20:09)
[2018-12-27] MEDS: hydrOXYzine 25 MG tablet PO PRN (07:52)
[2018-12-27 08:00] VITALS: BP 115/70
--- NOTE | 2018-12-27 16:24 | NUR ---
Nursing Progress Note Legal hold: 5250 Client on involuntary status for GD Report received from WINNIE Crouch with use of SBAR. Why are they here: 23 year old male was brought in by his mental health group after he was reported to be making statements about "shooting people" with his 44 magnum that he believes he "open carries". The patient stated he does not currently plan on shooting anyone unless he has to which he states "won't happen". He stated that he was going to "shoot the bad guys" and states that the bad guys are "the ones who are going to get in the way of justice". He stated that he was "Wandisimo" from the [employer] show and that he has "been misbehaving". He reports that he lives in [place] with his mental health group and has a history of Asperger's, Autism, and is currently taking Depakote. He denies hearing any voices in his head. He states that he smokes "a little bit". He denies any suicidal ideation. Assessment What has happened this shift: Pt denied depression but then stated jokingly, " I have crippling depression...it's a deion." Pt denied SI/HI/AH/VH, admitted to feeling, "a little" anxious. Pt observed pacing the halls talking, repeating things, and laughing often times hysterically to himself, "why would you name something Ass-burgers? That's just mean...lizard man, he's a lizard man...fake news, it was fake news." Pt does verbalize inappropriate things at times like, "v-tech, vaginal tech," or sing a "fatty doo-doo" song. He at one point was talking to himself asking, "can I get a reis shower?" then laughing hysterically. Limit setting utilized for inappropriate remarks, pt apologized, as well as with frequent requests for multiple showers, pt may shower once a day or once per shift. He remains easily redirectible though needs frequent reminders when he is getting too loud or saying something others may consider inappropriate. S/I, H/I: Pt denies A/VH: Pt denies Sleep: Slept 6.25 hours per noc shift report ADL's: Independent, likes to shower frequently Group attendance: yes Were meds taken: Yes Any med S/E None reported or observed Mental Status Exam Appearance: Clean, has facial acne Eye contact: Good Behavior: Paces the halls with blanket wrapped around him in a cape-like fashion, repeats phrases, laughs to himself. Speech: Somewhat pressured & unclear at times, talks & jokes to himself, thinks out loud. Mood: Happy, anxious Affect: Happy, laughing, restless, anxious, mischievous Thought process: humorous, flight of ideas, tangential when talking to himself Thought Content: perseverates on cartoon, comic book and movie characters, as well as makes statements to himself which he finds funny Cognition: A/O X 3 Insight: poor Judgment: Poor Interventions PRN's used: Atarax 50 mg Therapeutic interventions: 1:1 assessment, therapeutic conversation, medication administration/education/monitoring, limit setting, redirection, positive reinforcement, Q 15 min checks for safety. Restraints/seclusion/emergency medication: None Justification of Continued Inpatient Treatment: Pt needs stabilization with medication adjustment and monitoring to prevent readmission, as well as placement in an appropriate and supportive living environment.
[2018-12-27 19:00] VITALS: BP 111/71
[2018-12-27] MEDS: olanzapine 10mg tablet PO SCH (20:09)
[2018-12-27] MEDS: mirtazapine 15mg tablet PO SCH (20:09)
--- NOTE | 2018-12-28 00:54 | NUR ---
RN PROGRESS NOTE: THIS SHIFT: Client paced in [place] at [facility]. This RN asked "Do you need anything?" The client replied "Boundaries." and laughed. Client was upbeat, cooperative and compliant with medications. Showered.
[2018-12-28 08:00] VITALS: BP 123/60
[2018-12-28] MEDS: hydrOXYzine 25 MG tablet PO PRN (08:16)
[2018-12-28] MEDS: divalproex sod 250mg ER (24-hour) tablet PO SCH ×2 (08:16→20:35)
--- NOTE | 2018-12-28 10:24 | NUR ---
Initial: Pt admit w/ psychosis homicidal ideations per MD note. PO 75-100% regular diet meeting needs. [facility] 12/27. No nutrition concerns at this time. Will continue to monitor. Addendum: 12/28/18 at [address] Amended: Links added.
--- NOTE | 2018-12-28 13:59 | NUR ---
Nursing Progress Note Legal hold: 5250 Client on involuntary status for GD Report received from WINNIE Crouch with use of SBAR. Why are they here: 23 year old male was brought in by his mental health group after he was reported to be making statements about "shooting people" with his 44 magnum that he believes he "open carries". The patient stated he does not currently plan on shooting anyone unless he has to which he states "won't happen". He stated that he was going to "shoot the bad guys" and states that the bad guys are "the ones who are going to get in the way of justice". He stated that he was "Wandisimo" from the [employer] show and that he has "been misbehaving". He reports that he lives in [place] with his mental health group and has a history of Asperger's, Autism, and is currently taking Depakote. He denies hearing any voices in his head. He states that he smokes "a little bit". He denies any suicidal ideation. Assessment What has happened this shift: Pt was up pacing the hallway before breakfast talking and laughing to himself. He repeats phrases and often times rhymes words. "You're an owl, towel...digger, Tigger, the wonderful thing about tiggers...I'm Sponge Darian...I'm not a crusty crab, I'm Ricardo...I'm an jenny, I'm an jenny...I like cats, I want to be a cat...I like armadillos and opossums...I'm Jim, I want to be Jim...Mr Bocanegra...pharmacy services representative skipper-if I could be anybody in that show I'd be Brooke...Brooke want a cracker." Pt sings at times. He still occasionally will say something inappropriate such as a phrase including poop but he often will catch himself and say, "I'll shut up, I'll shut up." Pt is restless though friendly and easily redirectable. Pt went outside on the patio today with a group of peers, another RN reported that he was pleasant and cooperative, introduced himself, socialized appropriately with peers and participated in ball tossing activity. Pt denied depression, anxiety, SI/HI/AH/VH. S/I, H/I: Pt denies A/VH: Pt denies Sleep: Slept 7.75 hours per noc shift report ADL's: Independent Group attendance: yes Were meds taken: Yes Any med S/E None reported or observed Mental Status Exam Appearance: Clean, has facial acne Eye contact: Good Behavior: Paces the halls with blanket wrapped around him in a cape-like fashion, repeats phrases, laughs to himself. Speech: Somewhat pressured & unclear at times, talks & jokes to himself, thinks out loud. Mood: Good, happy Affect: Happy, laughing, restless, anxious Thought process: humorous, flight of ideas, tangential when talking to himself Thought Content: perseverates on cartoon, comic book and movie characters, makes statements to himself which he finds funny and then laughs gleefully. Cognition: A/O X 4 Insight: fair Judgment: fair Interventions PRN's used: Atarax 50 mg Therapeutic interventions: 1:1 assessment, therapeutic conversation, medication administration/education/monitoring, limit setting, redirection, positive reinforcement, Q 15 min checks for safety. Restraints/seclusion/emergency medication: None Justification of Continued Inpatient Treatment: Pt needs stabilization with medication adjustment and monitoring to prevent readmission, as well as placement in an appropriate and supportive living environment.
[2018-12-28 19:57] VITALS: BP 127/72
[2018-12-28] MEDS: mirtazapine 15mg tablet PO SCH (20:35)
[2018-12-28] MEDS: olanzapine 10mg tablet PO SCH (20:35)
--- NOTE | 2018-12-29 03:31 | NUR ---
Nursing Progress Note Legal hold: 5150 Client on involuntary status for GD Report received from SHANT Cerrato with use of SBAR. Why are they here: 23 year old male was brought in by his mental health group after he was reported to be making statements about "shooting people" with his 44 magnum that he believes he "open carries". The patient stated he does not currently plan on shooting anyone unless he has to which he states "won't happen". He stated that he was going to "shoot the bad guys" and states that the bad guys are "the ones who are going to get in the way of justice". He stated that he was "Wandisimo" from the [employer] Odd [employer] show and that he has "been misbehaving". He reports that he lives in [place] with his mental health group and has a history of Asperger's, Autism, and is currently taking Depakote. He denies hearing any voices in his head. He states that he smokes "a little bit". He denies any suicidal ideation. Assessment What has happened this shift: The patient was seen in his room for 1:1. The patient reports that "I was not thinking straight" for his reason to be here. "Sometimes I say bad things to women." The patient appears quite restless, and is always moving. He states that he was living alone, but he actually came from the [facility]. "I made inappropriate statements." The patient is sometimes a bit childlike, but is easily redirected. The patient took his HS meds then went to bed. S/I, H/I: Denies A/VH: Denies Sleep: See sleep assessment ADL's: Independent Group attendance: No groups this shift Were meds taken: Yes Any med S/E None reported/observed Mental Status Exam Appearance: Adequately groomed, wearing green scrubs and camo jacket Eye contact: Good Behavior: Walks the halls and laughs to himself Speech: Rapid, hyperverbal Mood: Labile. Affect: Congruent to mood Thought process: Grandiose, random unrelated statements Thought Content: Difficult to assess, patient makes random statements that don't particularly relate to anything. Cognition: Impaired Insight: Fair Judgment: Poor Interventions PRN's used: Atarax Therapeutic interventions: 1:1 assessment, medication administration, medication education, 15 min checks for safety. Restraints/seclusion/emergency medication: None Justification of Continued Inpatient Treatment: Interrupt current crisis, and prevent further decompensation.
[2018-12-29] MEDS: divalproex sod 250mg ER (24-hour) tablet PO SCH ×2 (07:27→20:41)
[2018-12-29] MEDS ORDERED: DIVA250T8 PO (07:34)
[2018-12-29] MEDS ORDERED: OLAN10TA19 PO (07:34)
[2018-12-29] MEDS ORDERED: DIVA-76 PO (07:34)
[2018-12-29] MEDS ORDERED: MIRT15TA8 PO (07:34)
[2018-12-29 07:53] VITALS: BP 110/70
--- NOTE | 2018-12-29 17:30 | NUR ---
Nursing Progress Note Legal hold: 5150 Client on involuntary status for GD Report received from SHANT Cerrato with use of SBAR. Why are they here: 23 year old male was brought in by his mental health group after he was reported to be making statements about "shooting people" with his 44 magnum that he believes he "open carries". The patient stated he does not currently plan on shooting anyone unless he has to which he states "won't happen". He stated that he was going to "shoot the bad guys" and states that the bad guys are "the ones who are going to get in the way of justice". He stated that he was "Wandisimo" from the [employer] show and that he has "been misbehaving". He reports that he lives in [place] with his mental health group and has a history of Asperger's, Autism, and is currently taking Depakote. He denies hearing any voices in his head. He states that he smokes "a little bit". He denies any suicidal ideation. Assessment What has happened this shift: Pt. asleep at beginning of [facility]. Pt. took all medications. Pt. ate all meals in community room. 1:1 done at bedside. Pt. mostly calm today pacing the floor and looking forward to discharge. Pt. did not get discharged today because his halfway could not pick him up, pt. handled it well. S/I, H/I: Denies A/VH: Denies Sleep: pt. did not nap. ADL's: Independent Group attendance: Y Were meds taken: Yes Any med S/E None reported/observed Mental Status Exam Appearance: Adequately groomed, wearing green scrubs and camo jacket Eye contact: Good Behavior: Pacing halls. Speech: WNL Mood: Labile Affect: Congruent to mood Thought process: Linear Thought Content: Looking forward to discharge Cognition: Impaired Insight: Fair Judgment: Poor Interventions PRN's used: None Therapeutic interventions: 1:1 assessment, medication administration, medication education, 15 min checks for safety. Restraints/seclusion/emergency medication: None Justification of Continued Inpatient Treatment: Interrupt current crisis, and prevent further decompensation.
[2018-12-29] MEDS: mirtazapine 15mg tablet PO SCH (20:40)
[2018-12-29] MEDS: olanzapine 10mg tablet PO SCH (20:41)
[2018-12-29 20:52] VITALS: BP 112/61
--- NOTE | 2018-12-30 02:14 | NUR ---
Nursing Progress Note: Legal hold: 5150 Client on voluntary/involuntary status for GD. Report received from nurse with use of SBAR day shift rn. Why are they here: 23 year old male was brought in by his mental health group after he was reported to be making statements about "shooting people" with his 44 magnum that he believes he "open carries". The patient stated he does not currently plan on shooting anyone unless he has to which he states "won't happen". He stated that he was going to "shoot the bad guys" and states that the bad guys are "the ones who are going to get in the way of justice". He stated that he was "Wandisimo" from the [employer] show and that he has "been misbehaving". He reports that he lives in [place] with his mental health group and has a history of Asperger's, Autism, and is currently taking Depakote. He denies hearing any voices in his head. He states that he smokes "a little bit". He denies any suicidal ideation. Assessment What has happened this shift: Patient asked RN several times about cartoons and videos on [employer], quoting characters and laughing. Pt pacing hallways and asking about a shower. Pt remained calm cooperative when told he would have to wait. S/I, H/I: Denies A/VH: Denies Sleep: Pt fell asleep shortly after getting into bed for the night. ADL's: Independent Group attendance: Were meds taken: Yes Any med S/E: None observed Mental Status Exam Appearance: In green scrubs and well-groomed. Appears chronological age. Eye contact: Infrequent Behavior: Subdued, pacing hallways. Speech: Slightly slowed rate, normal volume and tone Mood: Pt states he is feeling good Affect: Restricted Thought process: Normal thought formation Thought Content: Without ruminations, compulsions, or delusions. Denies presence of suicidal or homicidal ideation. Preoccupied with quoting cartoons and youtube videos Cognition: Pt appears alert with a stable level of consciousness. Formal cognitive testing not performed. Insight: Fair Judgment: Fair Interventions PRN's used: None Therapeutic interventions: 1:1 assessment, medication administration, medication education, 15 min checks for safety. Restraints/seclusion/emergency medication: None Justification of Continued Inpatient Treatment: Interrupt current crisis, and prevent further decompensation.
[2018-12-30 07:36] VITALS: BP 99/46
[2018-12-30] MEDS: divalproex sod 250mg ER (24-hour) tablet PO SCH (08:21)
--- NOTE | 2018-12-30 16:40 | NUR ---
DISCHARGE NOTE: Patient is being discharged back to his board and care. Patient is in a good mood, no suicidal statements. Patient is discharged in stable condition.
[2019-01-11] MEDS ORDERED: paliperidone palmitate inj 234 MG/1.5 ML SYRINGE IM SCH (08:00)
== END 2018-12-30 16:40 | disposition home or self-care (01) | DRG 885 ==
LOC: ADULT MH 12:31
PROVIDERS: ADMIT Psychiatry & Neurology Psychiatry; ATTEND Psychiatry & Neurology Psychiatry
DX: F39 Unspecified mood [affective] disorder (principal); F60.0 Paranoid personality disorder; F17.210 Nicotine dependence, cigarettes, uncomplicated; F84.5 Asperger's syndrome; Z59.0 Homelessness; Z88.8 Allergy status to other drugs, medicaments and biological substances
CPT/HCPCS: 36415; 80053; 80061; 80305; 80320; 83036; 84443; 85025; 87081; 99285; Z7610